=== PATIENT | male | born 1995 | race African-American/Black ===

== ENCOUNTER 2018-07-20 21:31 | Emergency (ER) | payer SELFPAY ==
[~2018-07-20] VITALS: Ht 188 cm; Wt 71.3 kg
[2018-07-21 00:07] LABS: BASOPHILS % 0.4 % (0.0-2.0); EOSINOPHILS % 1.6 % (0.0-5.0); HEMATOCRIT. 40.7 % (42.0-52.0); HEMOGLOBIN. 12.9 g/dL (14.0-18.0); LYMPHOCYTES % 17.2 % (20.0-50.0); MEAN CORPUSCULAR HEMOGLOBIN 23.6 pg (28.0-32.0); MEAN CORPUSCULAR VOLUME 74.6 fL (80.0-94.0); MEAN PLATELET VOLUME 8.3 fl (7.4-10.4); MONOCYTES % 7.6 % (2.0-8.0); NEUTROPHILS % 73.2 % (40.0-76.0); PLATELET 269 x1000/uL (130-400); RED BLOOD CELL COUNT 5.46 mill/uL (4.7-6.1); RED CELL DISTRIBUTION WIDTH 14.6 % (11.6-14.6)
[2018-07-21] MEDS ORDERED: OLANZAPINE 10 MG/VIAL IM ONE (00:15)
[2018-07-21 00:17] LABS: CHLORIDE 103 mEq/L (98-107)
[2018-07-21 00:22] LABS: ETHANOL BLOOD < 10 mg/dL
[2018-07-21] MEDS ORDERED: OLANZAPINE 10 MG/VIAL IM SCH (00:30)
[2018-07-21 00:46] LABS: CLARITY URINE CLEAR (CLEAR); COLOR URINE YELLOW (YELLOW); KETONES URINE NEGATIVE (NEGATIVE); LEUKOCYTE ESTERASE URINE NEGATIVE (NEGATIVE); NITRITE URINE NEGATIVE (NEGATIVE); OCCULT BLOOD URINE NEGATIVE (NEGATIVE); PH URINE 7.5 (4.5-8.0); PROTEIN URINE NEGATIVE (NEGATIVE); SPECIFIC GRAVITY URINE 1.013 (1.005-1.030); UROBILINOGEN URINE 0.2 E.U./dL (0.2-1.0)
[2018-07-21 01:11] LABS: *AMPHETAMINES SCREEN URINE NEGATIVE (NEGATIVE); *BARBITURATES SCREEN URINE NEGATIVE (NEGATIVE); *BENZODIAZEPINES SCREEN URINE NEGATIVE (NEGATIVE); *COCAINE SCREEN URINE NEGATIVE (NEGATIVE); METHADONE URINE SCREEN NEGATIVE (NEGATIVE); OPIATES URINE SCREEN NEGATIVE (NEGATIVE); PHENCYCLIDINE URINE SCREEN NEGATIVE (NEGATIVE)
[2018-07-21 01:12] LABS: CANNABINOID URINE SCREEN PRESUMTIVE POSITIVE (NEGATIVE)
[2018-07-21 11:42] VITALS: BP 114/86
== END 2018-07-21 14:31 | disposition home or self-care (01) ==
LOC: ER 21:31
DX: R45.851 Suicidal ideations (principal); F31.9 Bipolar disorder, unspecified; F20.9 Schizophrenia, unspecified; F16.10 Hallucinogen abuse, uncomplicated; F90.9 Attention-deficit hyperactivity disorder, unspecified type; Z91.048 Other nonmedicinal substance allergy status
CPT/HCPCS: 36415; 80053; 80305; 80307; 80329; 81003; 84132; 85025; 96372; 99284; G0482; J3490

== ENCOUNTER 2018-07-22 11:22 | Emergency (ER) | payer SELFPAY ==
[~2018-07-22] VITALS: Ht 172.7 cm; Wt 78.0 kg
[2018-07-22 11:26] VITALS: BP 128/84
== END 2018-07-22 15:20 | disposition home or self-care (01) ==
LOC: ER 15:18
DX: F31.9 Bipolar disorder, unspecified (principal); F20.9 Schizophrenia, unspecified; F41.9 Anxiety disorder, unspecified; F90.9 Attention-deficit hyperactivity disorder, unspecified type; Z88.4 Allergy status to anesthetic agent
CPT/HCPCS: 99283

== ENCOUNTER 2018-07-29 23:46 | Emergency (ER) | payer SELFPAY ==
[~2018-07-29] VITALS: Ht 182.9 cm; Wt 70.0 kg
[2018-07-30 00:09] VITALS: BP 154/100
== END 2018-07-30 05:53 | disposition left against medical advice (07) ==
LOC: ER 23:46
DX: R51 Headache (principal); Z53.21 Procedure and treatment not carried out due to patient leaving prior to being seen by health care provider